=== PATIENT | female | born 1960 | race American Indian/Alaskan Native ===

== ENCOUNTER 2025-05-15 06:00 | Day surgery (SDC) | payer OTHER ==
[2025-05-10 09:50] LABS: BASO % 0.5 % (0.1-1.2); EOS # 0.21 (0.04-0.54); EOS % 3.7 % (0.7-7.0); LYMPH # 2.37 (1.18-3.74); LYMPH % 41.6 % (19.3-53.1); MEAN PLATELET VOLUME 10.90 fl (9.4-12.4); MONO # 0.42 (0.24-0.82); MONO % 7.4 % (4.7-12.5); NEUT # 2.66 (1.56-6.13); NEUT % 46.6 % (34.0-71.1); RED CELL DISTRIBUTION WIDTH 13.4 % (11.6-14.4)
[2025-05-10 10:06] LABS: URINE APPEARANCE Clear; URINE BILIRRUBIN Negative (NEGATIVE); URINE BLOOD Negative; URINE COLOR Yellow; URINE GLUCOSE Negative (NEGATIVE); URINE KETONE Trace (NEGATIVE); URINE LEUKOCYTE Trace; URINE NITRATE Negative; URINE PROTEIN Negative (NEGATIVE); URINE UROBILINOGEN 0.2 E.U./dl
[2025-05-10 10:16] LABS: INR < 0.93; URINE BACTERIA 297.6 uL (0.0-1933); URINE CAST 5.86 uL (0.0-1.40); URINE EPITHELIAL CELLS 11.6 uL (0.0-38.8); URINE RBC 9.8 uL (0.0-20.8); URINE WBC 5.9 uL (0.0-23.2)
[2025-05-10 10:36] LABS: ALT/SGPT 23.0 U/L (12-78); AST/SGOT 14.0 U/L (15-37); BILIRUBIN TOTAL 0.28 mg/dL (0.3-1.2); BUN CREA RATIO 17.0 (7.0-25.0); CREATININE SERUM 0.88 mg/dL (0.55-1.02); GFR 64.9; GLOBULINA 3.9 G/DL (2.4-3.5); GLUCOSE FASTING 104.0 mg/dL (65-100); OSMOLALITY SERUM 288.0 MOSM/KG (275-295)
[~2025-05-15 06:00] MED LIST: METFORMIN HCL500 M3 PO; NORVASC2.5 M1 PO; PEPCID AC20 MG PO; PRILOSEC OTC20 MG PO; PROPRANOLOL HCL20 MG PO; SIMVASTATIN40 MG PO; SINGULAIR10 MG; VITAMIN D; VOLTAREN ARTHRI20 GM; ZANAFLEX2 M1 PO
[2025-05-15] MEDS ORDERED: CEFAZOLIN SODIUM 1,000 MG VIAL ONE (06:08)
[2025-05-15] MEDS ORDERED: BUPIVACAINE HCL/MPF 0.5% 30ML VIAL ONE (07:04)
[2025-05-15] MEDS ORDERED: LIDOCAINE HCL 1%/EPINEPHRINE 20ML VIAL IJ ONE (07:04)
[2025-05-15] MEDS ORDERED: CHLORHEXIDINE GLUCONATE 120 ML BOTTLE TOP ONE ×2 (07:05→08:00)
[2025-05-15] MEDS ORDERED: CEFAZOLIN SODIUM 1,000 MG VIAL IV ONE (08:00)
[2025-05-15] MEDS ORDERED: SUGAMMADEX SODIUM 200 MG/2 ML VIAL IV ONE ×2 (08:03→08:26)
[2025-05-15] MEDS ORDERED: hydrALAZINE HCL 20 MG VIAL ONE (08:33)
== END 2025-05-15 14:15 | disposition home or self-care (01) ==
LOC: CIR.AMB 06:00
PROVIDERS: ATTEND Surgery
DX: K81.1 Chronic cholecystitis (principal); Z91.041 Radiographic dye allergy status; Z91.040 Latex allergy status; Z91.013 Allergy to seafood; Z88.8 Allergy status to other drugs, medicaments and biological substances